=== PATIENT | male | born 1955 | race Caucasian/White ===

== ENCOUNTER 2016-12-03 11:29 | Emergency (ER) | payer OTHER ==
[~2016-12-03] VITALS: Ht 177.8 cm; Wt 85.0 kg
[~2016-12-03 11:29] MED LIST: ALBU8I INH; AMIT100 PO; AMLO5 PO; AMLO5TAB22 PO; GABA600T OR; OMPR20CCR PO
[2016-12-03 11:34] VITALS: BP 135/72; PULSE 90; RESP 24; TEMP 98.1; O2SAT 96
[2016-12-03] MEDS ORDERED: LEXA20TA PO (12:28)
[2016-12-03] MEDS ORDERED: AMIT1TAB79 PO (12:28)
[2016-12-03] MEDS ORDERED: TYLE325T PO (12:28)
[2016-12-03] MEDS ORDERED: GABA600T PO (12:28)
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
== END 2016-12-03 13:30 | disposition home or self-care (01) ==
LOC: NEPD 11:29
DX: S50.12XA Contusion of left forearm, initial encounter (principal); I10 Essential (primary) hypertension; F17.200 Nicotine dependence, unspecified, uncomplicated; Z87.39 Personal history of other diseases of the musculoskeletal system and connective tissue; Z86.79 Personal history of other diseases of the circulatory system; Z87.19 Personal history of other diseases of the digestive system; Z86.19 Personal history of other infectious and parasitic diseases; Z86.69 Personal history of other diseases of the nervous system and sense organs; Z87.09 Personal history of other diseases of the respiratory system; Z86.59 Personal history of other mental and behavioral disorders; W22.8XXA Striking against or struck by other objects, initial encounter
CPT/HCPCS: 99284

== ENCOUNTER 2017-07-02 02:23 | Emergency (ER) | payer OTHER ==
[~2017-07-02 02:23] MED LIST changes: -ALBU8I INH; -AMIT100 PO; +AMIT1TAB79 PO; -AMLO5 PO; -AMLO5TAB22 PO; -GABA600T OR; +GABA600T PO; +LEXA20TA PO; -OMPR20CCR PO; +TYLE325T PO
[2017-07-02 02:28] VITALS: BP 159/95; PULSE 74; RESP 18; TEMP 98.6; O2SAT 99
[2017-07-02] MEDS ORDERED: SODIUM CHLOR 0.9% 1000 ML INJ 1,000 ML IV SCH (02:29)
[2017-07-02] MEDS ORDERED: SODIUM CHLORIDE 0.9% FLUSH 10 ML FLUSH IVF PRN (02:30)
[2017-07-02] MEDS ORDERED: DIPHTH/TETANUS/ACEL PERTUSSIS (BOOSTER) 0.5 ML VIAL/PFS IM ONE (02:30)
[2017-07-02] MEDS ORDERED: ceFAZolin 2 GM PREMIX 50 ML IV ONE (02:30)
[2017-07-02 03:05] LABS: AUTOMATED NEUTROPHIL # 4.1 TH/MM3 (1.8-7.7); BASOPHIL # 0.1 TH/MM3 (0-0.2); BASOPHIL % 0.8 % (0.0-2.0); EOSINOPHIL # 0.1 TH/MM3 (0-0.4); EOSINOPHIL % 0.8 % (0.0-4.0); HEMATOCRIT 38.8 % (39.0-51.0); HEMO FLAGS DIFF FINAL; LYMPH % 36.8 % (9.0-44.0); LYMPHOCYTE # 2.8 TH/MM3 (1.0-4.8); MEAN CELL VOLUME 97.2 FL (80.0-100.0); MEAN CORPUSCULAR HEMOGLOBIN 31.7 PG (27.0-34.0); MEAN CORPUSCULAR HGB CONC 32.6 % (32.0-36.0); MONO % 8.2 % (0.0-8.0); NEUT % 53.4 % (16.0-70.0); PLATELET COUNT 211 TH/MM3 (150-450); RED BLOOD COUNT 3.99 MIL/MM3 (4.50-5.90); WHITE BLOOD COUNT 7.7 TH/MM3 (4.0-11.0)
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
[2017-07-02 03:39] LABS: BICARBONATE 20.6 MEQ/L (21.0-32.0)
[2017-07-02 03:41] LABS: POTASSIUM 5.3 MEQ/L (3.5-5.1)
[2017-07-02] MEDS ORDERED: LIDOCAINE 2%/EPINEPHrine PF 1:200,000 20ML SDV INFIL ONE (03:45)
[2017-07-02] MEDS ORDERED: SODIUM BICARBONATE 8.4% INJ 50 MEQ/50 ML SYR IV PUSH ONE (03:45)
[2017-07-02] MEDS ORDERED: CEPH-460 PO (04:05)
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
[2017-07-02 04:30] VITALS: BP 108/61; PULSE 63; RESP 18; O2SAT 99
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
== END 2017-07-02 09:58 | disposition home or self-care (01) ==
LOC: NEPE 02:23
DX: S01.511A Laceration without foreign body of lip, initial encounter (principal); S01.81XA Laceration without foreign body of other part of head, initial encounter; S00.03XA Contusion of scalp, initial encounter; S02.2XXA Fracture of nasal bones, initial encounter for closed fracture; S02.40FA Zygomatic fracture, left side, initial encounter for closed fracture; S22.31XA Fracture of one rib, right side, initial encounter for closed fracture; F17.200 Nicotine dependence, unspecified, uncomplicated; Y00.XXXA Assault by blunt object, initial encounter; Z23 Encounter for immunization
CPT/HCPCS: 12001; 12011; 40650; 70450; 70486; 71010; 72125; 80048; 80307; 85025; 90471; 90715; 96365; 99285; J0690; J7030